=== PATIENT | male | born 2000 | race Hispanic/Latino ===

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

== ENCOUNTER 2018-02-13 17:06 | Emergency (ER) | payer SELFPAY ==
--- NOTE | 2018-02-13 17:33 | RAD REPORT ---
EXAM DESCRIPTION: RAD - Shoulder Left 2 View - 02/13/2018 5:26 pm CLINICAL HISTORY: Left shoulder pain status post fall FINDINGS: No fracture is seen. Mild widening of the acromioclavicular joint indicates a mild sprain of the ligament.
--- NOTE | 2018-02-13 19:57 | ER ---
Nurse's Notes [facility] Name: Bill Biggs Age: 18 yrs Sex: Male : 2000 Arrival Date: 02/13/2018 Time: 17:08 Bed 15 Private MD: None, None Diagnosis: Sprain of left acromioclavicular joint Presentation: 02/13 17:11 Presenting complaint: Patient states: Pt was playing basketball 2 days ago and fell and sv landed on his left shoulder, c/o pain. Pt states his job made him come over here. Transition of care: patient was not received from another setting of care. Onset of symptoms was February 11, 2018. Care prior to arrival: None. 17:11 Method Of Arrival: Ambulatory sv 17:11 Acuity: NEENA 4 sv 17:16 Risk Assessment: Do you want to hurt yourself or someone else? Patient reports no sv desire to harm self or others. Initial Sepsis Screen: Does the patient meet any 2 criteria? No. Patient's initial sepsis screen is negative. Does the patient have a suspected source of infection? No. Patient's initial sepsis screen is negative. Historical: - Allergies: 17:14 No Known Allergies; sv - Home Meds: 17:14 None [Active]; sv - PMHx: 17:14 None; sv - PSHx: 17:14 Appendectomy; sv - Immunization history:: Adult Immunizations unknown. - Social history:: Smoking status: Patient uses tobacco products, smokes one-half pack cigarettes per day. - Ebola Screening: : No symptoms or risks identified at this time. - Family history:: not pertinent. - Hospitalizations: : No recent hospitalization is reported. Screenin:45 Abuse screen: Denies threats or abuse. Nutritional screening: No deficits noted. fc Tuberculosis screening: No symptoms or risk factors identified. Fall Risk None identified. Assessment: 19:45 General: Appears comfortable, slender, Behavior is calm, cooperative, appropriate for fc age. Pain: Complains of pain in left shoulder Quality of pain is described as aching, throbbing, Pain began gradually, Is continuous. Neuro: Level of Consciousness is awake, alert, obeys commands, Oriented to person, place, time, situation. Cardiovascular: No deficits noted. Respiratory: No deficits noted. GI: No deficits noted. : No deficits noted. EENT: No deficits noted. Derm: Skin is pink, warm \T\ dry. Musculoskeletal: Circulation, motion, and sensation intact. Capillary refill < 3 seconds, Range of motion: intact in all extremities, Reports pain in left shoulder. 19:50 Reassessment: Dr Reyes in to see pt and examine him. fc Vital Signs: 17:15 BP 128 / 69 RA Sitting (auto/reg); Pulse 70; Resp 18; Temp 98.7; Pulse Ox 98% ; Weight sv 63.5 kg; Height 5 ft. 8 in. (172.72 cm); Pain 3/10; 17:15 Body Mass Index 21.29 (63.50 kg, 172.72 cm) sv ED Course: 17:08 Patient arrived in ED. mr 17:09 None, None is Private Physician. mr 17:14 Triage completed. sv 17:14 Arm band placed on left wrist. sv 17:16 Patient placed in waiting room, Patient notified of wait time. sv 17:26 Patient moved to radiology via wheelchair. 1 17:26 X-ray completed. Patient tolerated procedure well. mh1 17:26 Patient moved back from radiology. 1 17:27 Shoulder Left (2 View) XRAY In Process Unspecified. EDMS 19:45 Patient has correct armband on for positive identification. Bed in low position. Call fc light in reach. 19:45 No provider procedures requiring assistance completed. Patient did not have IV access fc during this emergency room visit. 19:49 Juan Barbour MD is Attending Physician. rn 19:56 Sling applied to left arm. fc Administered Medications: No medications were administered Outcome: 19:55 Discharged to home ambulatory, with family. fc 19:55 Condition: good 19:55 Discharge instructions given to patient, family, Instructed on discharge instructions, follow up and referral plans. sling use Demonstrated understanding of instructions, follow-up care, sling use Prescriptions given X none 19:57 Discharge ordered by MD. rn 20:02 Patient left the ED. fc Signatures: Dispatcher [employer] EDNV Quiana Lee RN RN Emili Bentley Vaishnavi Rios [facility] Judi Hdez RN RN Juan Barbour MD MD computer science intern: (The following items were deleted from the chart) 17:14 17:14 Immunization history: Adult Immunizations up to date, [facility] sv 17:11 Presenting complaint: Patient states: Pt was playing basketball 2 days ago and sv fell and landed on his left shoulder, c/o pain. sv
--- NOTE | 2018-02-13 19:58 | EDPHYS ---
Physician Documentation [facility] Name: Bill Biggs Age: 18 yrs Sex: Male : 2000 Arrival Date: 02/13/2018 Time: 17:08 Bed 15 Private MD: None, None ED Physician Juan Barbour HPI: 02/13 19:53 This 18 yrs old Male presents to ER via Ambulatory with complaints of Shoulder rn Pain. 19:53 The patient or guardian complains of an injury, pain. left shoulder. Onset: The rn symptoms/episode began/occurred 3 day(s) ago. Associated signs and symptoms: Pertinent negatives: Numbness in left arm tingling, Weakness in left arm. Severity of symptoms: At their worst the symptoms were very mild, in the emergency department the symptoms are unchanged. The patient has not experienced similar symptoms in the past. Reports fall while playing basketball, landed on left shoulder, is right handed, no weakness/numbness. . Historical: - Allergies: 17:14 No Known Allergies; sv - Home Meds: 17:14 None [Active]; sv - PMHx: 17:14 None; sv - PSHx: 17:14 Appendectomy; sv - Immunization history:: Adult Immunizations unknown. - Social history:: Smoking status: Patient uses tobacco products, smokes one-half pack cigarettes per day. - Ebola Screening: : No symptoms or risks identified at this time. - Family history:: not pertinent. - Hospitalizations: : No recent hospitalization is reported. ROS: 19:53 Constitutional: Negative for fever, chills, and weight loss, Neck: Negative for injury, rn pain, and swelling, Back: Negative for injury and pain, MS/Extremity: + left shoulder injury Skin: Negative for injury, rash, and discoloration, Neuro: Negative for headache, weakness, numbness, tingling, and seizure. Exam: 19:53 Constitutional: This is a well developed, well nourished patient who is awake, alert, rn and in no acute distress. Carrying items with affected arm to room when roomed. Neck: Trachea midline, no thyromegaly or masses palpated, and no cervical lymphadenopathy. Supple, full range of motion without nuchal rigidity, or vertebral point tenderness. No Meningismus. MS/ Extremity: Pulses equal, no cyanosis. Neurovascular intact. + mild left shoulder tenderness over AC joint. Neuro: Awake and alert, GCS 15, oriented to person, place, time, and situationMotor strength 5/5 in all extremities. Sensory grossly intact. Normal gait. Vital Signs: 17:15 BP 128 / 69 RA Sitting (auto/reg); Pulse 70; Resp 18; Temp 98.7; Pulse Ox 98% ; Weight sv 63.5 kg; Height 5 ft. 8 in. (172.72 cm); Pain 3/10; 17:15 Body Mass Index 21.29 (63.50 kg, 172.72 cm) sv MDM: 19:49 Patient medically screened. rn 19:53 Differential diagnosis: Anterior dislocation with fracture, Anterior dislocation rn without fracture, humeral head fracture, DJD, tendonitis, AC sprain/separation. Data reviewed: vital signs, nurses notes, radiologic studies, plain films, and as a result, I will discharge patient. Counseling: I had a detailed discussion with the patient and/or guardian regarding: the historical points, exam findings, and any diagnostic results supporting the discharge/admit diagnosis, radiology results, the need for outpatient follow up, to return to the emergency department if symptoms worsen or persist or if there are any questions or concerns that arise at home. Special discussion: I discussed with the patient/guardian in detail that at this point there is no indication for admission to the hospital. It is understood, however, that if the symptoms persist or worsen the patient needs to return immediately for re-evaluation. 02/13 17:17 Order name: Shoulder Left (2 View) XRAY; Complete Time: 19:46 snw 02/13 19:53 Order name: Sling; Complete Time: 19:58 rn Administered Medications: No medications were administered Disposition: 02/13/18 19:57 Discharged to Home. Impression: Sprain of left acromioclavicular joint. - Condition is Stable. - Discharge Instructions: Acromioclavicular Injuries, Shoulder Sprain. - Work release form, Medication Reconciliation Form, Thank You Letter, Antibiotic Education, Prescription Opioid Use form. - Follow up: Private Physician; When: As needed; Reason: Recheck today's complaints, Re-evaluation by your physician. - Problem is new. - Symptoms have improved. Signatures: Dispatcher [employer] Quiana Jean Baptiste RN RN sv Judi Hdez RN RN Juan Barbour MD MD yarn carrier: (The following items were deleted from the chart) 17:14 17:14 Immunization history: Adult Immunizations up to date, [facility] 20:02 19:57 02/13/2018 19:57 Discharged to Home. Impression: Sprain of left acromioclavicular fc joint. Condition is Stable. Forms are Medication Reconciliation Form, Thank You Letter, Antibiotic Education, Prescription Opioid Use. Follow up: Private Physician; When: As needed; Reason: Recheck today's complaints, Re-evaluation by your physician. Problem is new. Symptoms have improved. rn
[2018-02-13 20:05] VITALS: BP 128/69; TEMP 98.7; O2SAT 98
== END 2018-02-13 20:02 | disposition home or self-care (01) ==
LOC: ER 17:06
DX: S43.52XA Sprain of left acromioclavicular joint, initial encounter (principal); W18.30XA Fall on same level, unspecified, initial encounter; Y93.67 Activity, basketball; Y92.9 Unspecified place or not applicable; F17.210 Nicotine dependence, cigarettes, uncomplicated
CPT/HCPCS: 99283

== ENCOUNTER 2018-07-02 10:28 | Emergency (ER) | payer SELFPAY ==
--- NOTE | 2018-07-02 11:03 | ER ---
Nurse's Notes [facility] Name: Bill Biggs Age: 18 yrs Sex: Male : 2000 Arrival Date: 07/02/2018 Time: 10:30 Bed 13 Private MD: Diagnosis: Pain in right knee Presentation: 07/02 10:30 Presenting complaint: Patient states: right knee pain after playing basketball on sv Monday. Transition of care: patient was not received from another setting of care. Onset of symptoms was June 30, 2018. Care prior to arrival: None. 10:30 Method Of Arrival: Ambulatory sv 10:30 Acuity: NEENA 4 sv 11:05 Risk Assessment: Do you want to hurt yourself or someone else? Patient reports no ph desire to harm self or others. Initial Sepsis Screen: Does the patient meet any 2 criteria? No. Patient's initial sepsis screen is negative. Does the patient have a suspected source of infection? No. Patient's initial sepsis screen is negative. Historical: - Allergies: 10:31 No Known Allergies; sv - Home Meds: 10:31 None [Active]; sv - PMHx: 10:31 None; sv - PSHx: 10:31 Appendectomy; sv - Immunization history:: Flu vaccine is not up to date. - Social history:: Smoking status: Patient uses tobacco products, smokes one-half pack cigarettes per day, Patient/guardian denies using alcohol, street drugs, The patient lives with family. - Ebola Screening: : No symptoms or risks identified at this time. - Family history:: not pertinent. Screenin:04 Abuse screen: Denies threats or abuse. Denies injuries from another. Nutritional ph screening: No deficits noted. Nutritional screening: No deficits noted. Tuberculosis screening: No symptoms or risk factors identified. Fall Risk None identified. Assessment: 10:45 General: Appears in no apparent distress. comfortable, Behavior is calm, cooperative, ph appropriate for age. Pain: Complains of pain in lateral aspect of right knee. Neuro: Level of Consciousness is awake, alert, obeys commands, Oriented to person, place, time, situation. Cardiovascular: Capillary refill < 3 seconds in bilateral fingers Patient's skin is warm and dry. Respiratory: Airway is patent Respiratory effort is even, unlabored, Respiratory pattern is regular, symmetrical. Derm: Skin is intact, is healthy with good turgor, Skin is pink, warm \T\ dry. Musculoskeletal: Circulation, motion, and sensation intact. Vital Signs: 10:31 BP 134 / 72; Pulse 59; Resp 18; Temp 97.8; Pulse Ox 99% ; Weight 65.77 kg; Height 5 ft. sv 8 in. (172.72 cm); Pain 7/10; 10:31 Body Mass Index 22.05 (65.77 kg, 172.72 cm) sv ED Course: 10:30 Patient arrived in ED. as 10:31 Triage completed. sv 10:33 Arm band placed on Patient placed in an exam room, on a stretcher. sv 10:38 Vanessa Granado MD is Attending Physician. ma 11:02 Jaleesa Mir RN is Primary Nurse. ph 11:05 Patient has correct armband on for positive identification. Bed in low position. Call ph light in reach. Side rails up X 1. Pulse ox on. NIBP on. 11:09 No provider procedures requiring assistance completed. Patient did not have IV access ph during this emergency room visit. Administered Medications: No medications were administered Outcome: 11:02 Discharge ordered by . ma2 11:09 Discharged to home ambulatory, with significant other. ph 11:09 Condition: good 11:09 Discharge instructions given to patient, Instructed on discharge instructions, follow up and referral plans. medication usage, Demonstrated understanding of instructions, follow-up care, medications, Prescriptions given X 1. 11:09 Patient left the ED. ph Signatures: Quiana Lee RN RN Mckenna Rodriguez Patricia, RN RN Vanessa Granado MD MD [facility] Corrections: (The following items were deleted from the chart) 10:33 10:31 Pulse 59bpm; Resp 18bpm; Pulse Ox 99%; Temp 97.8F; 65.77 kg; Height 5 ft. 8 in.; sv BMI: 22.0; Pain 7/10; sv
--- NOTE | 2018-07-02 11:03 | EDPHYS ---
Physician Documentation [facility] Name: Bill Biggs Age: 18 yrs Sex: Male : 2000 Arrival Date: 07/02/2018 Time: 10:30 Bed 13 Private MD: ED Physician Vanessa Granado HPI: 07/02 11:01 This 18 yrs old Male presents to ER via Ambulatory with complaints of Leg Pain.ma2 11:01 The complaints affect the lateral aspect of right knee. Onset: The symptoms/episode ma2 began/occurred suddenly, 2 day(s) ago. Associated signs and symptoms: Pertinent negatives calf tenderness, nausea, rash, swelling, vomiting, warmth, weakness. Treatment prior to arrival includes: no previous treatment. Severity of symptoms: At their worst the symptoms were moderate, in the emergency department the symptoms are unchanged. The patient has not experienced similar symptoms in the past. twisted his knee, no trauma . Historical: - Allergies: 10: No Known Allergies; sv - Home Meds: 10: None [Active]; sv - PMHx: : None; sv - PSHx: 10:31 Appendectomy; sv - Immunization history:: Flu vaccine is not up to date. - Social history:: Smoking status: Patient uses tobacco products, smokes one-half pack cigarettes per day, Patient/guardian denies using alcohol, street drugs, The patient lives with family. - Ebola Screening: : No symptoms or risks identified at this time. - Family history:: not pertinent. ROS: 11:01 Constitutional: Negative for fever, chills, and weight loss. ma2 11:01 MS/extremity: Positive for pain, Negative for abrasion, decreased range of motion, rash, tingling. 11:01 All other systems are negative. Exam: 11:01 Constitutional: This is a well developed, well nourished patient who is awake, alert, ma2 and in no acute distress. Chest/axilla: Normal chest wall appearance and motion. Nontender with no deformity. No lesions are appreciated. Cardiovascular: Regular rate and rhythm with a normal S1 and S2. No gallops, murmurs, or rubs. Normal PMI, no JVD. No pulse deficits. Respiratory: Lungs have equal breath sounds bilaterally, clear to auscultation and percussion. No rales, rhonchi or wheezes noted. No increased work of breathing, no retractions or nasal flaring. Abdomen/GI: Soft, non-tender, with normal bowel sounds. No distension or tympany. No guarding or rebound. No evidence of tenderness throughout. Skin: Warm, dry with normal turgor. Normal color with no rashes, no lesions, and no evidence of cellulitis. MS/ Extremity: Pulses equal, no cyanosis. Neurovascular intact. Full, normal range of motion. Neuro: Awake and alert, GCS 15, oriented to person, place, time, and situation. Cranial nerves II-XII grossly intact. Motor strength 5/5 in all extremities. Sensory grossly intact. Cerebellar exam normal. Normal gait. Psych: Awake, alert, with orientation to person, place and time. Behavior, mood, and affect are within normal limits. Vital Signs: 10:31 BP 134 / 72; Pulse 59; Resp 18; Temp 97.8; Pulse Ox 99% ; Weight 65.77 kg; Height 5 ft. sv 8 in. (172.72 cm); Pain 7/10; 10:31 Body Mass Index 22.05 (65.77 kg, 172.72 cm) sv MDM: 10:38 Patient medically screened. ma2 11:01 Differential diagnosis: contusion, abrasion, tendonitis. Data reviewed: vital signs, ma2 nurses notes, diagnostic data from outside facility. Counseling: I had a detailed discussion with the patient and/or guardian regarding: the historical points, exam findings, and any diagnostic results supporting the discharge/admit diagnosis, the presence of at least one elevated blood pressure reading (>120/80) during this emergency department visit, the need for outpatient follow up. Administered Medications: No medications were administered Disposition: 07/02/18 11:02 Discharged to Home. Impression: Pain in right knee. - Condition is Stable. - Discharge Instructions: How to Use a Knee Brace, Knee Pain, [id number]. - Prescriptions for Tylenol- Codeine #3 300-30 mg Oral Tablet - take 2 tablet by ORAL route every 6 hours As needed; 30 tablet. - Work release form, Medication Reconciliation Form, Thank You Letter, Antibiotic Education, Prescription Opioid Use form. - Follow up: Private Physician; When: Tomorrow; Reason: Continuance of care. Signatures: Quiana Lee RN RN Jaleesa Mir RN RN [facility] MD ma2 Corrections: (The following items were deleted from the chart) 11:09 11:02 07/02/2018 11:02 Discharged to Home. Impression: Pain in right knee. Condition is ph Stable. Forms are Medication Reconciliation Form, Thank You Letter, Antibiotic Education, Prescription Opioid Use. Follow up: Private Physician; When: Tomorrow; Reason: Continuance of care. ma2
[2018-07-03 14:35] VITALS: BP 134/72; TEMP 97.8; O2SAT 99
== END 2018-07-02 11:09 | disposition home or self-care (01) ==
LOC: ER 10:28
DX: M25.561 Pain in right knee (principal); F17.210 Nicotine dependence, cigarettes, uncomplicated
CPT/HCPCS: 99283

== ENCOUNTER 2018-07-09 16:18 | Emergency (ER) | payer SELFPAY ==
--- NOTE | 2018-07-09 17:18 | RAD REPORT ---
EXAM DESCRIPTION: RAD - Knee Right 3 View - 07/09/2018 5:10 pm CLINICAL HISTORY: Knee pain following basketball injury COMPARISON: None. FINDINGS: No fracture, dislocation or periosteal reaction.No measurable joint effusion seen. No join t space narrowing. No foreign body or other soft tissue abnormality. IMPRESSION: No acute bone or joint finding. Clinical concerns for internal derangement or occult bony injury could be further assessed with MR im aging.
--- NOTE | 2018-07-09 17:51 | ER ---
Nurse's Notes [facility] Name: Bill Biggs Age: 18 yrs Sex: Male : 2000 Arrival Date: 07/09/2018 Time: 16:22 Bed 27 Private MD: None, None Diagnosis: Pain in right knee Presentation: 07/09 16:25 Presenting complaint: Patient states: "I hurt my right knee playing basketball and I aa5 came here but it's still hurting". Transition of care: patient was not received from another setting of care. Onset of symptoms was June 2018. Risk Assessment: Do you want to hurt yourself or someone else? Patient reports no desire to harm self or others. Initial Sepsis Screen: Does the patient meet any 2 criteria? No. Patient's initial sepsis screen is negative. Does the patient have a suspected source of infection? No. Patient's initial sepsis screen is negative. Care prior to arrival: None. 16:25 Method Of Arrival: Ambulatory aa5 16:25 Acuity: NEENA 4 aa5 Historical: - Allergies: 16:27 No Known Allergies; aa5 - PMHx: 16:27 None; aa5 - PSHx: 16:27 Appendectomy; aa5 - Immunization history:: Adult Immunizations up to date. - Social history:: Smoking status: Patient uses tobacco products, smokes one-half pack cigarettes per day. - Ebola Screening: : No symptoms or risks identified at this time. Screenin:09 Abuse screen: Denies threats or abuse. Denies injuries from another. Nutritional mg2 screening: No deficits noted. Tuberculosis screening: No symptoms or risk factors identified. Fall Risk Fall in past 12 months (25 points). Assessment: 17:08 General: Appears in no apparent distress. comfortable, Behavior is calm, cooperative. mg2 Pain: Complains of pain in right knee Pain does not radiate. Pain currently is 4 out of 10 on a pain scale. Quality of pain is described as aching, Pain began last week. Neuro: Level of Consciousness is awake, alert, obeys commands, Oriented to person, place, time, situation. Cardiovascular: No deficits noted. Respiratory: No deficits noted. GI: No deficits noted. : No deficits noted. EENT: No deficits noted. Derm: Skin is intact, is healthy with good turgor, Skin is pink, warm \\T\\ dry. normal. Musculoskeletal: Circulation, motion, and sensation intact. Capillary refill < 3 seconds. Vital Signs: 16:28 BP 136 / 68; Pulse 64; Resp 16 S; Temp 98.1(TE); Pulse Ox 99% on R/A; Weight 65.77 kg aa5 (R); Height 5 ft. 8 in. (172.72 cm) (R); Pain 8/10; 16:28 Body Mass Index 22.05 (65.77 kg, 172.72 cm) aa5 ED Course: 16:22 Patient arrived in ED. mr 16:22 None, None is Private Physician. mr 16:25 Arm band placed on. aa5 16:27 Triage completed. aa5 16:34 Shiraz Flores NP is PHCP. pm1 16:34 Carter Correa MD is Attending Physician. pm1 17:08 Yazan Smallwood RN is Primary Nurse. mg2 17:08 X-ray completed. Portable x-ray completed in exam room. Patient tolerated procedure ls3 well. 17:08 Knee Right 3 View XRAY In Process Unspecified. EDMS 17:09 Patient has correct armband on for positive identification. Pulse ox on. NIBP on. Door mg2 closed. Ice pack to injury. 17:09 No provider procedures requiring assistance completed. Patient did not have IV access mg2 during this emergency room visit. 17:50 Scar Farooq MD is Referral Physician. pm1 18:07 Crutch training done. Knee immobilizer applied on right knee. mg2 Administered Medications: No medications were administered Outcome: 17:50 Discharge ordered by . pm1 18:45 Discharged to home ambulatory, with crutches. mg2 18:45 Condition: good 18:45 Discharge instructions given to patient, family, Instructed on discharge instructions, follow up and referral plans. medication usage, Demonstrated understanding of instructions, follow-up care, medications, crutch walking, Prescriptions given X 1. 18:46 Patient left the ED. mg2 Signatures: Dispatcher [employer] EDMI Elisa BentleySavannah, RN RN aa5 Shiraz Flores, MARY FELLING BUCKING SUPERVISOR pm1 Yazan Smallwood RN RN mg2 LuisJaneth ls3
--- NOTE | 2018-07-09 17:51 | EDPHYS ---
Physician Documentation [facility] Name: Bill Biggs Age: 18 yrs Sex: Male : 2000 Arrival Date: 07/09/2018 Time: 16:22 Bed 27 Private MD: None, None ED Physician Carter Correa Historical: - Allergies: 07/09 16:27 No Known Allergies; aa5 - PMHx: 16:27 None; aa5 - PSHx: 16:27 Appendectomy; aa5 - Immunization history:: Adult Immunizations up to date. - Social history:: Smoking status: Patient uses tobacco products, smokes one-half pack cigarettes per day. - Ebola Screening: : No symptoms or risks identified at this time. Vital Signs: 16:28 BP 136 / 68; Pulse 64; Resp 16 S; Temp 98.1(TE); Pulse Ox 99% on R/A; Weight 65.77 kg aa5 (R); Height 5 ft. 8 in. (172.72 cm) (R); Pain 8/10; 16:28 Body Mass Index 22.05 (65.77 kg, 172.72 cm) aa5 MDM: 16:35 Patient medically screened. [facility] 17:49 Data reviewed: vital signs. Data interpreted: Pulse oximetry: on room air is 99 %. pm1 Interpretation: normal. Counseling: I had a detailed discussion with the patient and/or guardian regarding: the historical points, exam findings, and any diagnostic results supporting the discharge/admit diagnosis, radiology results, the need for outpatient follow up, to return to the emergency department if symptoms worsen or persist or if there are any questions or concerns that arise at home. 07/09 16:36 Order name: Knee Right 3 View XRAY; Complete Time: 17:38 pm1 07/09 17:49 Order name: Knee Immobilizer; Complete Time: 18:07 pm1 07/09 17:49 Order name: Crutches; Complete Time: 18:07 pm1 Administered Medications: No medications were administered Disposition: 07/09/18 17:50 Discharged to Home. Impression: Pain in right knee. - Condition is Stable. - Discharge Instructions: Crutch Use, Knee Immobilizer, Knee Pain. - Prescriptions for Naprosyn 500 mg Oral Tablet - take 1 tablet by ORAL route 2 times per day take with food; 30 tablet. - Medication Reconciliation Form, Thank You Letter, Work release form form. - Follow up: Emergency Department; When: As needed; Reason: Worsening of condition. Follow up: Scar Farooq MD; When: 2 - 3 days; Reason: Recheck today's complaints, Continuance of care, Re-evaluation by your physician. - Problem is new. - Symptoms have improved. Signatures: Dispatcher [employer] EDME Carter Correa MD MD cha Calderon, Audri, RN RN aa5 Shiraz Flores BONDERITE OPERATOR BONDERITE OPERATOR pm1 Yazan Smallwood RN RN mg2 Corrections: (The following items were deleted from the chart) 18:46 17:50 07/09/2018 17:50 Discharged to Home. Impression: Pain in right knee. Condition is mg2 Stable. Forms are Medication Reconciliation Form, Thank You Letter, Antibiotic Education, Prescription Opioid Use. Follow up: Emergency Department; When: As needed; Reason: Worsening of condition. Follow up: Dr. Scar Farooq; When: 2 - 3 days; Reason: Recheck today's complaints, Continuance of care, Re-evaluation by your physician. Problem is new. Symptoms have improved. pm1
[2018-07-09 20:20] VITALS: BP 136/68; TEMP 98.1; O2SAT 99
== END 2018-07-09 18:46 | disposition home or self-care (01) ==
LOC: ER 16:18
DX: M25.561 Pain in right knee (principal); F17.210 Nicotine dependence, cigarettes, uncomplicated
CPT/HCPCS: 99284

== ENCOUNTER 2018-07-11 20:16 | Emergency (ER) | payer SELFPAY ==
--- NOTE | 2018-07-11 20:43 | EDPHYS ---
Physician Documentation [facility] Name: Bill Biggs Age: 18 yrs Sex: Male : 2000 Arrival Date: 07/11/2018 Time: 20:16 Bed 11 Private MD: ED Physician Kanu iM HPI: 07/11 20:39 This 18 yrs old Male presents to ER via Ambulatory with complaints of Knee ps1 Pain, NEEDS WORK EXCUSE. 20:39 patient seen and evaluated for right knee pain. No new complaints. Requesting a one day ps1 extension on work note. Has not been able to follow up with PCP. Pain intermittent and worse with valgus stress. . Historical: - Allergies: 20:32 No Known Allergies; aj1 - Home Meds: 20:32 None [Active]; aj1 - PMHx: 20:32 None; aj1 - PSHx: 20:32 Appendectomy; aj1 - Immunization history:: Flu vaccine is not up to date. - Social history:: Smoking status: Patient uses tobacco products, smokes one-half pack cigarettes per day. - Ebola Screening: : Patient denies travel to an Ebola-affected area in the 21 days before illness onset. ROS: 20:39 Constitutional: Negative for fever, chills, and weight loss, Eyes: Negative for injury, ps1 pain, redness, and discharge, Cardiovascular: Negative for chest pain, palpitations, and edema, Respiratory: Negative for shortness of breath, cough, wheezing, and pleuritic chest pain, Abdomen/GI: Negative for abdominal pain, nausea, vomiting, diarrhea, and constipation, Neuro: Negative for headache, weakness, numbness, tingling, and seizure. 20:39 MS/extremity: Positive for decreased range of motion, tenderness. 20:39 MS/extremity: Positive for of the medial aspect of right knee. ps1 Exam: 20:39 Constitutional: This is a well developed, well nourished patient who is awake, alert, ps1 and in no acute distress. Head/Face: Normocephalic, atraumatic. Cardiovascular: Regular rate and rhythm. No gallops, murmurs, or rubs. Normal PMI, no JVD. No pulse deficits. Respiratory: Lungs have equal breath sounds bilaterally, clear to auscultation and percussion. No rales, rhonchi or wheezes noted. No increased work of breathing, no retractions or nasal flaring. Abdomen/GI: Soft, non-tender, with normal bowel sounds. No distension or tympany. No guarding or rebound. No evidence of tenderness throughout. 20:39 Musculoskeletal/extremity: Extremities: grossly normal except: noted in the medial aspect of right knee: tenderness, There is no evidence of contusion, deformity. Vital Signs: 20:32 BP 128 / 87; Pulse 65; Resp 16; Temp 97.7; Pulse Ox 100% on R/A; Weight 65.77 kg (R); aj1 Height 5 ft. 8 in. (172.72 cm) (R); 20:32 Body Mass Index 22.05 (65.77 kg, 172.72 cm) aj1 MDM: 20:39 Data reviewed: vital signs, nurses notes, and as a result, I will discharge patient. ps1 20:42 Patient medically screened. ps1 Administered Medications: No medications were administered Disposition: 07/11/18 20:42 Discharged to Home. Impression: Pain in right knee. - Condition is Stable. - Discharge Instructions: Knee Pain. - Work release form, Medication Reconciliation Form, Thank You Letter, Antibiotic Education, Prescription Opioid Use form. - Follow up: Private Physician; When: As needed; Reason: Further diagnostic work-up, Recheck today's complaints, Continuance of care, Re-evaluation by your physician. Follow up: Emergency Department; When: As needed; Reason: Fever > 102 F, Worsening of condition. Signatures: Mela Hawthorne RN RN aj1 Yi Ames RN RN aa1 Kanu Mi MD MD ps1 Corrections: (The following items were deleted from the chart) 21:09 20:42 07/11/2018 20:42 Discharged to Home. Impression: Pain in right knee. Condition is aa1 Stable. Forms are Medication Reconciliation Form, Thank You Letter, Antibiotic Education, Prescription Opioid Use. Follow up: Private Physician; When: As needed; Reason: Further diagnostic work-up, Recheck today's complaints, Continuance of care, Re-evaluation by your physician. Follow up: Emergency Department; When: As needed; Reason: Fever > 102 F, Worsening of condition. ps1
--- NOTE | 2018-07-11 20:43 | ER ---
Nurse's Notes [facility] Name: Bill Biggs Age: 18 yrs Sex: Male : 2000 Arrival Date: 07/11/2018 Time: 20:16 Bed 11 Private MD: Diagnosis: Pain in right knee Presentation: 07/11 20:30 Presenting complaint: Patient states: "I came back because I was here on Monday for my aj1 knee. They took X-Rays and everything, they gave me this note. I told them I only wanted a day off, but today my knee was still hurting so I decided that I needed another day off.". Transition of care: patient was not received from another setting of care. Onset of symptoms was July 11, 2018. Risk Assessment: Do you want to hurt yourself or someone else? Patient reports no desire to harm self or others. Initial Sepsis Screen: Does the patient meet any 2 criteria? No. Patient's initial sepsis screen is negative. Does the patient have a suspected source of infection? No. Patient's initial sepsis screen is negative. Care prior to arrival: None. 20:30 Method Of Arrival: Ambulatory aj1 20:30 Acuity: NEENA 5 aj1 Triage Assessment: 20:32 General: Appears in no apparent distress. comfortable, Behavior is calm, cooperative, aj1 appropriate for age. Pain: Pain currently is 6 out of 10 on a pain scale. Neuro: Level of Consciousness is awake, alert, obeys commands. Cardiovascular: Patient's skin is warm and dry. Respiratory: Airway is patent Respiratory effort is even, unlabored, Respiratory pattern is regular, symmetrical. Historical: - Allergies: 20:32 No Known Allergies; aj1 - Home Meds: 20:32 None [Active]; aj1 - PMHx: 20:32 None; aj1 - PSHx: 20:32 Appendectomy; aj1 - Immunization history:: Flu vaccine is not up to date. - Social history:: Smoking status: Patient uses tobacco products, smokes one-half pack cigarettes per day. - Ebola Screening: : Patient denies travel to an Ebola-affected area in the 21 days before illness onset. Screenin:40 Abuse screen: Denies threats or abuse. Denies injuries from another. Nutritional aa1 screening: No deficits noted. Tuberculosis screening: No symptoms or risk factors identified. Fall Risk None identified. Assessment: 20:40 General: Appears in no apparent distress. comfortable, Behavior is calm, cooperative, aa1 appropriate for age. Pain: Complains of pain in medial aspect of right knee. Neuro: Level of Consciousness is awake, alert, obeys commands, Oriented to person, place, time, situation, Moves all extremities. Full function Gait is steady. Respiratory: Airway is patent Respiratory effort is even, unlabored, Respiratory pattern is regular, symmetrical. GI: No signs and/or symptoms were reported involving the gastrointestinal system. : No signs and/or symptoms were reported regarding the genitourinary system. EENT: No signs and/or symptoms were reported regarding the EENT system. Derm: Skin is intact, is healthy with good turgor, Skin is pink, warm \\T\\ dry. Musculoskeletal: Circulation, motion, and sensation intact. Capillary refill < 3 seconds. 21:08 Reassessment: Patient appears in no apparent distress at this time. Patient is alert, aa1 oriented x 3, equal unlabored respirations, skin warm/dry/pink. Discussed d/c \\T\\ f/u instructions with pt; denies questions or concerns at this time. Vital Signs: 20:32 BP 128 / 87; Pulse 65; Resp 16; Temp 97.7; Pulse Ox 100% on R/A; Weight 65.77 kg (R); aj1 Height 5 ft. 8 in. (172.72 cm) (R); 20:32 Body Mass Index 22.05 (65.77 kg, 172.72 cm) aj1 ED Course: 20:16 Patient arrived in ED. al2 20:25 Kanu Mi MD is Attending Physician. ps1 20:32 Triage completed. aj1 20:32 Arm band placed on Patient placed in an exam room. aj1 20:40 Patient has correct armband on for positive identification. Bed in low position. Call aa1 light in reach. 20:40 No provider procedures requiring assistance completed. Patient did not have IV access aa1 during this emergency room visit. Administered Medications: No medications were administered Outcome: 20:42 Discharge ordered by . ps1 21:08 Discharged to home ambulatory. aa1 21:08 Condition: good 21:08 Discharge instructions given to patient, Instructed on discharge instructions, follow up and referral plans. Demonstrated understanding of instructions, follow-up care. 21:09 Patient left the ED. aa1 Signatures: Mela Hawthorne RN RN aj1 Yi Ames RN RN aa1 Kanu Mi MD MD ps1 Georgia Leigh
[2018-07-11 21:25] VITALS: BP 128/87; TEMP 97.7; O2SAT 100
== END 2018-07-11 21:09 | disposition home or self-care (01) ==
LOC: ER 20:16
DX: M25.561 Pain in right knee (principal); F17.210 Nicotine dependence, cigarettes, uncomplicated
CPT/HCPCS: 99281

== ENCOUNTER 2019-06-18 04:08 | Emergency (ER) | payer SELFPAY ==
[2019-06-18] MEDS ORDERED: LORazepam 2 MG/ML VIAL ONE (04:34)
[2019-06-18] MEDS ORDERED: THIAMINE 200 MG/2 ML INJ ONE (04:34)
[2019-06-18] MEDS ORDERED: NA CHLORIDE 0.9% 1,000 ML ONE (04:34)
[2019-06-18 04:57] LABS: Absolute Lymphocytes (CBC) 2.9 K/uL (0.7-4.9); Basophils % 1.1 % (0-1.3); Lymphocytes % 33.5 % (15.3-44.8); MPV 9.1 fL (7.6-11.3); RBC Red Blood Cell Count 5.47 M/uL (4.33-5.43)
[2019-06-18 04:59] LABS: Protime INR 0.89
[2019-06-18 05:09] LABS: Barbiturates NEGATIVE (NEGATIVE); Benzodiazepines NEGATIVE (NEGATIVE); Cocaine NEGATIVE (NEGATIVE); METHAMPHETAM NEGATIVE (NEGATIVE); Methadone NEGATIVE (NEGATIVE); Opiates NEGATIVE (NEGATIVE); Phencyclidine NEGATIVE (NEGATIVE); THC Cannibis NEGATIVE (NEGATIVE)
[2019-06-18 05:12] LABS: Urine Blood TRACE (NEG); Urine Glucose NEGATIVE (NEG); Urine Specific Gravity 1.025 (1.005-1.030)
[2019-06-18 05:13] LABS: Urine Protein NEGATIVE (NEG)
[2019-06-18 05:15] LABS: ALT/SGPT 24 U/L (12-78); AST/SGOT 16 U/L (15-37); Albumin 4.2 g/dL (3.4-5.0); Alkaline Phosphatase 125 U/L (45-117); BUN Blood Urea Nitrogen 12 mg/dL (7-18); Bicarbonate 25 mmol/L (21-32); Bilirubin Direct 0.1 mg/dL (0-0.2); Bilirubin Total 0.4 mg/dL (0.2-1.0); Glucose Level 123 mg/dL (74-106); Potassium 3.1 mmol/L (3.5-5.1); Protein, Total 7.6 g/dL (6.4-8.2); Sodium Level 139 mmol/L (136-145)
--- NOTE | 2019-06-18 05:47 | ER ---
Nurse's Notes [facility] Name: Bill Bigsg Age: 19 yrs Sex: Male : 2000 Arrival Date: 06/18/2019 Time: 04:09 Bed 8 Private MD: Diagnosis: Anxiety disorder due to known physiological condition;Alcohol abuse;Hypokalemia Presentation: 06/18 04:19 Presenting complaint: Patient states: since 0300, SOB and rapid heart rate. pt stated ak1 he has not been able to sleep X2 days. pt denies ETOH X2 days but for the past 2 weeks has had 10 to 12 shots of liquor daily. Transition of care: patient was not received from another setting of care. Onset of symptoms was June 18, 2019. Risk Assessment: Do you want to hurt yourself or someone else? Patient reports no desire to harm self or others. Initial Sepsis Screen: Does the patient meet any 2 criteria? No. Patient's initial sepsis screen is negative. Does the patient have a suspected source of infection? No. Patient's initial sepsis screen is negative. Care prior to arrival: None. 04:19 Method Of Arrival: Ambulatory ak1 04:19 Acuity: NEENA 3 ak1 Triage Assessment: 04:21 General: Appears in no apparent distress. Behavior is anxious. Pain: Denies pain. ak1 Historical: - Allergies: 04:21 No Known Allergies; ak1 - Home Meds: 04:21 None [Active]; ak1 - PMHx: 04:21 None; ak1 - PSHx: 04:21 Appendectomy; ak1 - Immunization history:: Adult Immunizations unknown. - Social history:: Smoking status: Patient uses tobacco products, smokes one-half pack cigarettes per day, Patient uses alcohol, on a daily basis. patient/guardian reports recent binge of alcohol consumption. Patient/guardian denies using street drugs. - Ebola Screening: : No symptoms or risks identified at this time. Screenin:21 Abuse screen: Denies threats or abuse. Denies injuries from another. Nutritional ak1 screening: No deficits noted. Tuberculosis screening: No symptoms or risk factors identified. Fall Risk None identified. Assessment: 04:20 General: Appears in no apparent distress. Behavior is anxious. Pain: Denies pain. lp1 Neuro: Level of Consciousness is awake, alert, obeys commands, Oriented to person, place, time, situation, Gait is steady. Cardiovascular: Capillary refill < 3 seconds in bilateral fingers Patient's skin is warm and dry. Rhythm is sinus rhythm. Respiratory: Reports shortness of breath Airway is patent Respiratory effort is even, Respiratory pattern is regular, Breath sounds are clear bilaterally. Onset: The symptoms/episode began/occurred gradually, the patient has mild shortness of breath. GI: No signs and/or symptoms were reported involving the gastrointestinal system. : No signs and/or symptoms were reported regarding the genitourinary system. EENT: No signs and/or symptoms were reported regarding the EENT system. Derm: Skin is pink, warm \T\ dry. Musculoskeletal: No deficits noted. 05:42 Reassessment: Patient appears in no apparent distress at this time. Patient is alert, lp1 oriented x 3, equal unlabored respirations, skin warm/dry/pink. Patient states feeling better. Patient states symptoms have improved. General: Behavior is calm. Vital Signs: 04:18 BP 161 / 111; Pulse 105; Resp 18; Temp 97.4; Pulse Ox 99% on R/A; Weight 79.38 kg (R); ak1 Height 5 ft. 8 in. (172.72 cm) (R); Pain 0/10; 04:30 BP 159 / 97; Pulse 82; Resp 19; Pulse Ox 100% on R/A; lp1 04:45 BP 151 / 78; Pulse 77; Resp 14; Pulse Ox 98% on R/A; lp1 05:30 BP 133 / 96; Pulse 72; Resp 17; Pulse Ox 100% on R/A; lp1 04:18 Body Mass Index 26.61 (79.38 kg, 172.72 cm) ak1 ED Course: 04:09 Patient arrived in ED. ds1 04:13 Carter Correa MD is Attending Physician. jadon 04:18 Arm band placed on Patient placed in an exam room, on a stretcher, on compliance monitor, ak1 on pulse oximetry, Patient notified of wait time. 04:20 Triage completed. ak1 04:21 Patient has correct armband on for positive identification. Bed in low position. Call ak1 light in reach. Side rails up X 1. Adult w/ patient. air sampling and monitoring on. Pulse ox on. NIBP on. 04:25 Inserted saline lock: 20 gauge in right antecubital area, using aseptic technique. lp1 Blood collected. 04:27 Jovanna Barrett, RN is Primary Nurse. lp1 04:55 Chest Single View XRAY In Process Unspecified. EDMS 05:39 No provider procedures requiring assistance completed. lp1 05:56 IV discontinued, No redness/swelling at site. Pressure dressing applied. lp1 Administered Medications: 04:35 Drug: Thiamine 100 mg Route: IV; Rate: bolus; Site: right antecubital; lp1 04:50 Follow up: Response: No adverse reaction; IV Status: Completed infusion lp1 04:35 Drug: NS 0.9% 1000 ml Route: IV; Rate: 1 bolus; Site: right antecubital; lp1 05:42 Follow up: IV Status: Completed infusion; IV Intake: 1000ml lp1 04:35 Drug: Ativan 1 mg Route: IVP; Site: right antecubital; lp1 05:42 Follow up: Response: Marked relief of symptoms lp1 05:56 Drug: Potassium Effervescent Tablet 25 mEq Route: PO; lp1 05:56 Follow up: Response: Medication administered at discharge. lp1 Intake: 05:42 IV: 1000ml; Total: 1000ml. lp1 Outcome: 05:46 Discharge ordered by MD. diop 05:56 Discharged to home ambulatory, with family. lp1 05:56 Condition: good 05:56 Discharge instructions given to patient, Instructed on discharge instructions, follow up and referral plans. medication usage, Demonstrated understanding of instructions, follow-up care, medications, Prescriptions given X 2. 05:57 Patient left the ED. lp1 Signatures: Dispatcher [employer] EDNY Carter Correa MD MD cha Sanford, Jocelin ds1 Jovanna Barrett, RN RN lp1 Marija Castro RN RN ak1 Corrections: (The following items were deleted from the chart) 04:50 04:20 Respiratory: Reports shortness of breath Airway is patent Respiratory effort is lp1 even, Respiratory pattern is regular, Breath sounds are clear bilaterally. Onset: The symptoms/episode began/occurred gradually, lp1
--- NOTE | 2019-06-18 05:47 | EDPHYS ---
Physician Documentation [facility] Name: Bill Biggs Age: 19 yrs Sex: Male : 2000 Arrival Date: 06/18/2019 Time: 04:09 Bed 8 Private MD: ED Physician Carter Correa HPI: 06/18 04:37 This 19 yrs old Male presents to ER via Ambulatory with complaints of Anxiety, jadon Shortness Of Breath. 04:37 The patient has shortness of breath at rest, with light activity. Onset: The jadon symptoms/episode began/occurred this morning, yesterday, last night. Duration: The symptoms are continuous, and are steadily getting worse. The patient's shortness of breath has no apparent modifying factors. Associated signs and symptoms: Pertinent positives: chest pain. Severity of symptoms: At their worst the symptoms were mild in the emergency department the symptoms are unchanged. The patient has not experienced similar symptoms in the past. Historical: - Allergies: 04:21 No Known Allergies; ak1 - Home Meds: 04:21 None [Active]; ak1 - PMHx: 04:21 None; ak1 - PSHx: 04:21 Appendectomy; ak1 - Immunization history:: Adult Immunizations unknown. - Social history:: Smoking status: Patient uses tobacco products, smokes one-half pack cigarettes per day, Patient uses alcohol, on a daily basis. patient/guardian reports recent binge of alcohol consumption. Patient/guardian denies using street drugs. - Ebola Screening: : No symptoms or risks identified at this time. ROS: 04:38 Constitutional: Negative for fever, chills, and weight loss, Eyes: Negative for injury, jadon pain, redness, and discharge, ENT: Negative for injury, pain, and discharge, Neck: Negative for injury, pain, and swelling, Abdomen/GI: Negative for abdominal pain, nausea, vomiting, diarrhea, and constipation, Back: Negative for injury and pain, : Negative for injury, bleeding, discharge, and swelling, MS/Extremity: Negative for injury and deformity, Skin: Negative for injury, rash, and discoloration, Neuro: Negative for headache, weakness, numbness, tingling, and seizure, Allergy/Immunology: Negative for hives, rash, and allergies, Endocrine: Negative for neck swelling, polydipsia, polyuria, polyphagia, and marked weight changes, Hematologic/Lymphatic: Negative for swollen nodes, abnormal bleeding, and unusual bruising. 04:38 Cardiovascular: Positive for chest pain. 04:38 Respiratory: Positive for shortness of breath. 04:38 Psych: Positive for anxiety. Exam: 04:38 Constitutional: This is a well developed, well nourished patient who is awake, alert, jadon and in no acute distress. Head/Face: Normocephalic, atraumatic. Eyes: Pupils equal round and reactive to light, extra-ocular motions intact. Lids and lashes normal. Conjunctiva and sclera are non-icteric and not injected. Cornea within normal limits. Periorbital areas with no swelling, redness, or edema. ENT: Nares patent. No nasal discharge, no septal abnormalities noted. Tympanic membranes are normal and external auditory canals are clear. Oropharynx with no redness, swelling, or masses, exudates, or evidence of obstruction, uvula midline. Mucous membranes moist. Neck: Trachea midline, no thyromegaly or masses palpated, and no cervical lymphadenopathy. Supple, full range of motion without nuchal rigidity, or vertebral point tenderness. No Meningismus. Chest/axilla: Normal chest wall appearance and motion. Nontender with no deformity. No lesions are appreciated. Cardiovascular: Regular rate and rhythm with a normal S1 and S2. No gallops, murmurs, or rubs. Normal PMI, no JVD. No pulse deficits. Respiratory: Lungs have equal breath sounds bilaterally, clear to auscultation and percussion. No rales, rhonchi or wheezes noted. No increased work of breathing, no retractions or nasal flaring. Abdomen/GI: Soft, non-tender, with normal bowel sounds. No distension or tympany. No guarding or rebound. No evidence of tenderness throughout. Back: No spinal tenderness. No costovertebral tenderness. Full range of motion. Skin: Warm, dry with normal turgor. Normal color with no rashes, no lesions, and no evidence of cellulitis. MS/ Extremity: Pulses equal, no cyanosis. Neurovascular intact. Full, normal range of motion. Neuro: Awake and alert, GCS 15, oriented to person, place, time, and situation. Cranial nerves II-XII grossly intact. Motor strength 5/5 in all extremities. Sensory grossly intact. Cerebellar exam normal. Normal gait. Psych: Awake, alert, with orientation to person, place and time. Behavior, mood, and affect are within normal limits. 04:38 Musculoskeletal/extremity: DVT Exam: No signs of deep vein thrombosis. no pain, no swelling, no tenderness, negative Homans' sign noted on exam, no appreciated bluish discoloration, no erythema, no increased warmth. Vital Signs: 04:18 BP 161 / 111; Pulse 105; Resp 18; Temp 97.4; Pulse Ox 99% on R/A; Weight 79.38 kg (R); ak1 Height 5 ft. 8 in. (172.72 cm) (R); Pain 0/10; 04:30 BP 159 / 97; Pulse 82; Resp 19; Pulse Ox 100% on R/A; lp1 04:45 BP 151 / 78; Pulse 77; Resp 14; Pulse Ox 98% on R/A; lp1 05:30 BP 133 / 96; Pulse 72; Resp 17; Pulse Ox 100% on R/A; lp1 04:18 Body Mass Index 26.61 (79.38 kg, 172.72 cm) ak1 MDM: 04:13 Patient medically screened. [facility] 04:38 Data reviewed: vital signs, nurses notes, lab test result(s), EKG, radiologic studies, [facility] plain films. 06/18 04:20 Order name: Acetaminophen; Complete Time: 05:42 mt 06/18 04:20 Order name: Basic Metabolic Panel; Complete Time: 05:42 mt 06/18 04:20 Order name: CBC with Diff; Complete Time: 05:42 pr 06/18 04:20 Order name: ETOH Level; Complete Time: 05:42 pr 06/18 04:20 Order name: Hepatic Function; Complete Time: 05:42 pr 06/18 04:20 Order name: PT-INR; Complete Time: 05:42 pr 06/18 04:20 Order name: Ptt, Activated; Complete Time: 05:42 pr 06/18 04:20 Order name: Salicylate; Complete Time: 05:42 pr 06/18 04:20 Order name: Urine Drug Screen; Complete Time: 05:42 pr 06/18 04:22 Order name: Chest Single View XRAY [facility] 06/18 04:48 Order name: Urine Dipstick--Ancillary (enter results); Complete Time: 05:42 pr 06/18 05:48 Order name: Urine Microscopic Only [facility] 06/18 04:20 Order name: EKG; Complete Time: 04:21 pr 06/18 04:20 Order name: EKG - Nurse/Tech; Complete Time: 04:46 pr 06/18 04:20 Order name: IV Saline Lock; Complete Time: 04:46 pr 06/18 04:20 Order name: Labs collected and sent; Complete Time: 04:46 pr 06/18 04:20 Order name: Urine Dipstick-Ancillary (obtain specimen); Complete Time: 04:46 pr 06/18 05:45 Order name: PO challenge: juice, oj; Complete Time: 05:46 [facility] Administered Medications: 04:35 Drug: Thiamine 100 mg Route: IV; Rate: bolus; Site: right antecubital; lp1 04:50 Follow up: Response: No adverse reaction; IV Status: Completed infusion lp1 04:35 Drug: NS 0.9% 1000 ml Route: IV; Rate: 1 bolus; Site: right antecubital; lp1 05:42 Follow up: IV Status: Completed infusion; IV Intake: 1000ml lp1 04:35 Drug: Ativan 1 mg Route: IVP; Site: right antecubital; lp1 05:42 Follow up: Response: Marked relief of symptoms lp1 05:56 Drug: Potassium Effervescent Tablet 25 mEq Route: PO; lp1 05:56 Follow up: Response: Medication administered at discharge. lp1 Disposition: 06/18/19 05:46 Discharged to Home. Impression: Anxiety disorder due to known physiological condition, Alcohol abuse, Hypokalemia. - Condition is Stable. - Discharge Instructions: Alcohol Intoxication, Alcohol Withdrawal, Panic Attacks, Potassium Content of Foods, Alcohol Abuse and Nutrition, Alcohol Withdrawal, Ravy-aj-Kxpz, Panic Attacks, Qqdr-dz-[id number], Hypokalemia. - Prescriptions for Hydroxyzine HCl 25 mg Oral Tablet - take 1 tablet by ORAL route every 6 hours As needed; 30 tablet. Pepcid 20 mg Oral Tablet - take 1 tablet by ORAL route every 12 hours for 10 days; 20 tablet. - Medication Reconciliation Form, Thank You Letter, Antibiotic Education, Prescription Opioid Use form. - Follow up: Private Physician; When: 2 - 3 days; Reason: Recheck today's complaints, Continuance of care, Re-evaluation by your physician. - Problem is new. - Symptoms have improved. Signatures: Dispatcher [employer] EDMS Carter Correa MD MD cha Pena, Laura RN RN lp1 Marija Castro RN RN ak1 Omayra Levy mt Corrections: (The following items were deleted from the chart) 05:57 05:46 06/18/2019 05:46 Discharged to Home. Impression: Anxiety disorder due to known lp1 physiological condition; Alcohol abuse; Hypokalemia. Condition is Stable. Discharge Instructions: Alcohol Intoxication, Alcohol Withdrawal, Panic Attacks, Alcohol Abuse and Nutrition, Alcohol Withdrawal, Ugrs-hq-Ubhj, Panic Attacks, Ripn-xt-Ytbs. Prescriptions for Hydroxyzine HCl 25 mg Oral Tablet - take 1 tablet by ORAL route every 6 hours As needed; 30 tablet, Pepcid 20 mg Oral Tablet - take 1 tablet by ORAL route every 12 hours for 10 days; 20 tablet. and Forms are Medication Reconciliation Form, Thank You Letter, Antibiotic Education, Prescription Opioid Use. Follow up: Private Physician; When: 2 - 3 days; Reason: Recheck today's complaints, Continuance of care, Re-evaluation by your physician. Problem is new. Symptoms have improved. jadon
[2019-06-18] MEDS ORDERED: POTASSIUM 25 MEQ EFFERV TAB ONE (05:50)
[2019-06-18 06:01] LABS: Urine Bacteria <20 /HPF (NONE SEEN); Urine Culture Reflex Order REFLEXED; Urine RBC <5 /HPF (NONE SEEN)
[2019-06-18 06:04] VITALS: TEMP 97.4
[2019-06-18 06:08] VITALS: BP 133/96; O2SAT 100
--- NOTE | 2019-06-18 07:15 | RAD REPORT ---
EXAM DESCRIPTION: RAD - Chest Single View - 06/18/2019 4:54 am CLINICAL HISTORY: Shortness of breath COMPARISON: None. TECHNIQUE: AP portable chest image was obtained 0438 hours . FINDINGS: Lungs are clear. Heart and vasculature are normal. No measurable pleural effusion and no p neumothorax. No acute bony abnormality seen. No acute aortic findings suspected. IMPRESSION: No acute cardiopulmonary process.
--- NOTE | 2019-06-18 11:02 | EKG ---
Test Date: 2019-06-18 Test Time: 04:42:21 Archives Specialist: ANGELO MEASUREMENT RESULTS: Intervals: Rate: 81 UT: 134 QRSD: 100 QT: 370 QTc: 429 [place]: P: 38 UT: 134 QRS: 84 T: 5 INTERPRETIVE STATEMENTS: Normal sinus rhythm Possible Left atrial enlargement Nonspecific ST abnormality Abnormal ECG No previous ECG available for comparison Electronically Signed On 06-18-19 11:01:19 CDT by Bert Treviño
== END 2019-06-18 05:57 | disposition home or self-care (01) ==
LOC: ER 04:08
DX: F06.4 Anxiety disorder due to known physiological condition (principal); F10.10 Alcohol abuse, uncomplicated; E87.6 Hypokalemia; F17.210 Nicotine dependence, cigarettes, uncomplicated
CPT/HCPCS: 36415; 71045; 80048; 80076; 80307; 80320; 80329; 81003; 81015; 85025; 85610; 85730; 87086; 87088; 93005; 96361; 96374; 96375; 99284; J3411; J7030

== ENCOUNTER 2020-08-06 17:59 | Emergency (ER) | payer SELFPAY ==
[2020-08-06] MEDS ORDERED: LIDOCAINE 1% MPF 5 ML VIAL ONE (19:11)
--- NOTE | 2020-08-06 19:28 | EDPHYS ---
Physician Documentation [facility] Name: Bill Biggs Age: 20 yrs Sex: Male : 2000 Arrival Date: 08/06/2020 Time: 18:01 Bed 25 Private MD: ED Physician Carter Correa HPI: 08/06 19:21 This 20 yrs old Male presents to ER via Ambulatory with complaints of Wound jmm Infection. 19:21 Onset: The symptoms/episode began/occurred gradually, 3 day(s) ago. Associated signs jmm and symptoms: Pertinent negatives: fever. This is a 20 year old male with no chronic medical conditions that presents to the ED with complaints of right lower leg pain and swelling. Patient states he was hit in the lower leg while playing soccer 1 week ago. Swelling began about 3 days ago. Denies fever or chills. . Historical: - Allergies: 18:19 No Known Allergies; jd3 - Home Meds: 18:19 None [Active]; jd3 - PMHx: 18:19 None; jd3 - PSHx: 18:19 Appendectomy; jd3 - Immunization history:: Adult Immunizations up to date, Last tetanus immunization: unknown. - Social history:: Smoking status: Patient reports the use of cigarette tobacco products, denies chronic smoking, but will smoke occasionally. ROS: 19:21 Constitutional: Negative for fever, chills, and weight loss, Cardiovascular: Negative jmm for chest pain, palpitations, and edema, Respiratory: Negative for shortness of breath, cough, wheezing, and pleuritic chest pain. 19:21 MS/extremity: Positive for pain, tenderness. 19:21 All other systems are negative. Exam: 19:21 Constitutional: This is a well developed, well nourished patient who is awake, alert, jmm and in no acute distress. Head/Face: atraumatic. Eyes: EOMI, no conjunctival erythema appreciated ENT: Moist Mucus Membranes Neck: Trachea midline, Supple Chest/axilla: Normal chest wall appearance and motion. Cardiovascular: Regular rate and rhythm. No edema appreciated Respiratory: Normal respirations, no respiratory distress appreciated Abdomen/GI: Non distended, soft Back: Normal ROM 19:21 Skin: swelling, erythema noted to the right lower leg, TTP. 19:21 Neuro: Orientation: is normal, Mentation: is normal, Memory: is normal. 19:21 Psych: Behavior/mood is pleasant, cooperative. Vital Signs: 18:20 BP 141 / 88; Pulse 81; Resp 17 S; Temp 97.7(TE); Pulse Ox 97% on R/A; Weight 90.72 kg jd3 (R); Height 5 ft. 8 in. (172.72 cm) (R); Pain 3/10; 18:20 Body Mass Index 30.41 (90.72 kg, 172.72 cm) jd3 Procedures: 19:25 I \T\ D: Incision and drainage was performed for an abscess of the right right solitario jmm Prepped with Betadine, Anesthetized with 2 ml's 1% Lidocaine. Incised with #11 blade. Drained large amount purulent fluid. bloody fluid. Cultures obtained. Abscess cavity explored. Packed with iodoform gauze, Dressing: sterile 4x4 gauze, the patient tolerated the procedure well. MDM: 18:28 Patient medically screened. [facility] 19:25 Data reviewed: vital signs, nurses notes. Counseling: I had a detailed discussion with [facility] the patient and/or guardian regarding: the historical points, exam findings, and any diagnostic results supporting the discharge/admit diagnosis, the need for outpatient follow up, to return to the emergency department if symptoms worsen or persist or if there are any questions or concerns that arise at home. ED course: Patient is alert and non toxic in appearance in the ED. Abscess drained. Patient prescribed oral abx and given strict return precautions. Patient understood and agrees with the plan of care. . 08/06 19:18 Order name: Wound Culture [facility] Administered Medications: 19:16 Drug: Lidocaine (1 %) 20 ml {Note: Administered by PA. Amando} Volume: 20 ml; aj1 Route: Infiltration; Disposition: 08/07 06:02 Co-signature as Attending Physician, Carter Correa MD I agree with the assessment and [facility] plan of care. Disposition: 08/06/20 19:27 Discharged to Home. Impression: Cutaneous abscess of left lower limb. - Condition is Stable. - Discharge Instructions: Skin Abscess, Incision and Drainage, Incision and Drainage, Care After. - Prescriptions for Bactrim DS 800- 160 mg Oral Tablet - take 1 tablet by ORAL route every 12 hours for 10 days; 20 tablet. Doxycycline Monohydrate 100 mg Oral Tablet - take 1 tablet by ORAL route every 12 hours for 10 days; 20 tablet. - Medication Reconciliation Form, Thank You Letter, Antibiotic Education, Prescription Opioid Use form. - Follow up: Donavan Rodriguez MD; When: 2 - 3 days; Reason: Recheck today's complaints, Continuance of care, Re-evaluation by your physician. Signatures: Dispatcher [employer] EDMela Childers RN RN aj1 Carter Correa MD MD cha Mickail, Joel, PA PA jmm Davies, Jonathon, RN RN jd3 Corrections: (The following items were deleted from the chart) 08/06 19:43 19:27 08/06/2020 19:27 Discharged to Home. Impression: Cutaneous abscess of left lower aj1 limb. Condition is Stable. Forms are Medication Reconciliation Form, Thank You Letter, Antibiotic Education, Prescription Opioid Use. Follow up: Donavan Rodriguez; When: 2 - 3 days; Reason: Recheck today's complaints, Continuance of care, Re-evaluation by your physician. leroy
--- NOTE | 2020-08-06 19:28 | ER ---
Nurse's Notes [facility] Name: Bill Biggs Age: 20 yrs Sex: Male : 2000 Arrival Date: 08/06/2020 Time: 18:01 Bed 25 Private MD: Diagnosis: Cutaneous abscess of left lower limb Presentation: 08/06 18:18 Chief complaint: Patient states: "I hit my right solitario while playing soccer about a week jd3 ago and not it is swollen and it looks like it has puss in it.". Coronavirus screen: At this time, the client does not indicate any symptoms associated with coronavirus-19. Ebola Screen: Patient negative for fever greater than or equal to 101.5 degrees Fahrenheit, and additional compatible Ebola Virus Disease symptoms. Initial Sepsis Screen: Does the patient meet any 2 criteria? No. Patient's initial sepsis screen is negative. Does the patient have a suspected source of infection? No. Patient's initial sepsis screen is negative. Risk Assessment: Do you want to hurt yourself or someone else? Patient reports no desire to harm self or others. Onset of symptoms was August 02, 2020. 18:18 Method Of Arrival: Ambulatory jd3 18:18 Acuity: NEENA 3 jd3 Historical: - Allergies: 18:19 No Known Allergies; jd3 - Home Meds: 18:19 None [Active]; jd3 - PMHx: 18:19 None; jd3 - PSHx: 18:19 Appendectomy; jd3 - Immunization history:: Adult Immunizations up to date, Last tetanus immunization: unknown. - Social history:: Smoking status: Patient reports the use of cigarette tobacco products, denies chronic smoking, but will smoke occasionally. Screenin:02 Abuse screen: Denies threats or abuse. Denies injuries from another. Nutritional aj1 screening: No deficits noted. Tuberculosis screening: No symptoms or risk factors identified. 19:43 Fall Risk None identified. aj1 Assessment: 19:02 General: Appears in no apparent distress. uncomfortable, Behavior is calm, cooperative, aj1 appropriate for age. Pain: Complains of pain in right solitario. Neuro: Level of Consciousness is awake, alert, obeys commands, Oriented to person, place, time, situation. Cardiovascular: Patient's skin is warm and dry. Respiratory: Airway is patent Respiratory effort is even, unlabored, Respiratory pattern is regular, symmetrical. GI: No signs and/or symptoms were reported involving the gastrointestinal system. : No signs and/or symptoms were reported regarding the genitourinary system. EENT: No signs and/or symptoms were reported regarding the EENT system. Derm: Skin is pink, warm \\T\\ dry. Abscess located on right solitario is golf ball sized, is hot to touch, is red, is raised. Musculoskeletal: No signs and/or symptoms reported regarding the musculoskeletal system. Circulation, motion, and sensation intact. Vital Signs: 18:20 BP 141 / 88; Pulse 81; Resp 17 S; Temp 97.7(TE); Pulse Ox 97% on R/A; Weight 90.72 kg jd3 (R); Height 5 ft. 8 in. (172.72 cm) (R); Pain 3/10; 18:20 Body Mass Index 30.41 (90.72 kg, 172.72 cm) j ED Course: 18:01 Patient arrived in ED. ag5 18:19 Triage completed. jd3 18:21 Arm band placed on. jd3 18:27 Russell Zuñiga PA is PHCP. m 18:27 Carter Correa MD is Attending Physician. [facility] 18:47 Mela Hawthorne RN is Primary Nurse. aj1 19:02 Patient has correct armband on for positive identification. Bed in low position. Call aj1 light in reach. Side rails up X 1. 19:02 No provider procedures requiring assistance completed. aj1 19:27 Donavan Rodriguez MD is Referral Physician. [facility] 19:42 Assist provider with I \\T\\ D: of an abscess on Set up I\\T\\D tray. Performed by Russell Zuñiga aj 1 PA Culture sent to lab. Wound packed. iodoform gauze, Dressing with 4X4s, tape Patient tolerated well. Patient did not have IV access during this emergency room visit. Administered Medications: 19:16 Drug: Lidocaine (1 %) 20 ml {Note: Administered by MICAH Goel.} Volume: 20 ml; aj1 Route: Infiltration; Outcome: 19:27 Discharge ordered by . [facility] 19:43 Discharged to home ambulatory. [facility] 19:43 Condition: good 19:43 Discharge instructions given to patient, Instructed on discharge instructions, follow up and referral plans. medication usage, Demonstrated understanding of instructions, follow-up care, medications, Prescriptions given X 2. 19:43 Patient left the ED. aj1 Addendum: 08/11/2020 08:25 Addendum: Culture Results: Positive wound culture. No further action required. Bacteria i w sensitive to prescribed antibiotic. Signatures: Mela Hawthorne RN RN aj1 Russell Zuñiga PA PA jmm Williams, Irene, RN RN iw Davies, Jonathon, RN RN jDavid Tanner ag5 Corrections: (The following items were deleted from the chart) 08/06 18:22 18:20 Pulse 81bpm; Resp 17bpm; Spontaneous; Pulse Ox 97% RA; Temp 97.7F Temporal; 90.72 jd3 kg Reported; Height 5 ft. 8 in. Reported; BMI: 30.4; Pain 3/10; jd3 18:23 18:20 Pulse 81bpm; Resp 17bpm; Spontaneous; Pulse Ox 97% RA; Temp 97.7F Temporal; 90.72 jd3 kg Reported; Height 5 ft. 8 in. Reported; BMI: 30.4; Pain 3/10; jd3
[2020-08-07 09:33] VITALS: BP 141/88; TEMP 97.7; O2SAT 97
== END 2020-08-06 19:43 | disposition home or self-care (01) ==
LOC: ER 17:59
PROC: 0J9N0ZZ Drainage of Right Lower Leg Subcutaneous Tissue and Fascia, Open Approach (ICD-10-PCS; principal; 2020-08-06)
DX: L02.415 Cutaneous abscess of right lower limb (principal); F17.210 Nicotine dependence, cigarettes, uncomplicated
CPT/HCPCS: 87070; 87077; 87186; 87205; 99284